=== PATIENT | female | born 1980 | race Caucasian/White ===

== ENCOUNTER 2017-05-10 07:40 | Emergency (ER) | payer OTHER ==
[~2017-05-10] VITALS: Ht 157.5 cm; Wt 74.8 kg
--- NOTE | ~2017-05-10 | EKG ---
[address] [place] [address] ELECTROCARDIOGRAM REPORT Name: AMIE QUEVEDO [id number] Admission: 05/10/17 Attend Phys: Discharge: 05/10/17 Date of : 76 Report #: [id number] THIS REPORT FOR: //name// [facility] ED Test Date: 2017-05-10 Test Time: 07:52:23 Pat Name: AMIE QUEVEDO Department: Room: Gender: F Security Compliance Engineer: ammon : 1980 Requested By: Edgar Obando Order Number: [id number] MD: Rajan Castillo Measurements Intervals [place] Rate: 88 P: 9 NC: 130 QRS: -32 QRSD: 81 T: 45 QT: 390 QTc: 472 Interpretive Statements Sinus rhythm Leftward axis Nonspecific T wave abnormality No previous ECGs available for comparison Electronically Signed On 05-10-2017 17:39:13 CDT by Rajan Castillo [email or web address] <ELECTRONICALLY SIGNED> By: Rajan Castillo MD, [facility] 05/10/17 [id number] [phone] Rajan Castillo MD, FACC /EPI
[~2017-05-10 07:40] MED LIST: CIPROFLOXACIN500 M1 PO; DARVOCET-N 1001 EACH PO; NOHOMEMEDICATIONS; PEPCID40 MG PO; PHENERGAN 25 MG25 M1 PO; STOOL SOFTENER240 MG PO; ZOFRAN ODT4 MG PO
[2017-05-10 08:13] LABS: ABSOLUTE NEUTROPHILS 13.9 thou/uL (1.4-8.2); BASOPHILS 0.2 % (0.0-2.0); EOSINOPHILS 0.2 % (0.0-3.0); HEMATOCRIT 48.2 % (37.0-47.0); HEMOGLOBIN 16.4 gm/dL (12.0-15.0); LYMPHOCYTES 6.5 % (24.0-44.0); MCH 30.5 pg (26.0-34.0); MCV 89.8 fL (80.0-100.0); MONOCYTES 2.4 % (1.0-8.0); PLATELET COUNT 288 thou/uL (150-400); POLYS 90.7 % (36.0-66.0); RBC 5.36 mil/uL (4.20-5.00); RDW 13.8 % (10.5-14.5); WBC 15.3 thou/uL (4.0-11.0)
[2017-05-10 08:18] LABS: CALCIUM 9.1 mg/dL (8.5-10.1); CREATININE 0.7 mg/dL (0.6-1.0); POTASSIUM 3.9 mmol/L (3.5-5.1)
[2017-05-10 08:23] LABS: ALBUMIN 3.7 g/dL (3.4-5.0); TOTAL BILIRUBIN 0.8 mg/dL (<0.1-1.0); TOTAL PROTEIN 7.7 g/dL (6.4-8.2)
[2017-05-10] MEDS ORDERED: ONDANSETRON HCL4 M2 PO (09:37)
[2017-05-10 09:46] VITALS: BP 116/63
== END 2017-05-10 09:47 | disposition home or self-care (01) ==
LOC: ER 07:40
PROVIDERS: Emergency Medicine
DX: R11.2 Nausea with vomiting, unspecified (principal); J45.909 Unspecified asthma, uncomplicated; F17.210 Nicotine dependence, cigarettes, uncomplicated; Z90.49 Acquired absence of other specified parts of digestive tract; Z91.040 Latex allergy status; Z88.1 Allergy status to other antibiotic agents; Z88.5 Allergy status to narcotic agent

== ENCOUNTER 2019-11-18 09:44 | Inpatient (IN) | payer OTHER ==
[~2019-11-18] VITALS: Ht 144.8 cm; Wt 63.5 kg
[~2019-11-18 09:44] MED LIST changes: +ONDANSETRON HCL4 M2 PO
[2019-11-18 09:47] VITALS: BP 154/86
[2019-11-18] MEDS ORDERED: ZOLOFT100 MG PO (09:52)
[2019-11-18] MEDS ORDERED: AMITRIPTYLINE H50 M2 PO (09:52)
[2019-11-18 10:36] LABS: ABSOLUTE NEUTROPHILS 3.4 thou/uL (1.4-8.2); ANION GAP 8 mmol/L (7-16); BASOPHILS 1.2 % (0.0-2.0); BUN 7 mg/dL (7-18); CALCIUM 8.5 mg/dL (8.5-10.1); CHLORIDE 103 mmol/L (98-107); CO2 25 mmol/L (21-32); CREATININE 0.7 mg/dL (0.6-1.0); GLUCOSE 93 mg/dL (74-106); HEMATOCRIT 45.8 % (37.0-47.0); HEMOGLOBIN 15.6 gm/dL (12.0-15.0); LYMPHOCYTES 38.5 % (24.0-44.0); MCH 30.8 pg (26.0-34.0); MCV 90.7 fL (80.0-100.0); MONOCYTES 8.3 % (1.0-8.0); PLATELET COUNT 327 thou/uL (150-400); RBC 5.05 mil/uL (4.20-5.00); RDW 13.6 % (10.5-14.5); SODIUM 136 mmol/L (136-145); WBC 6.8 thou/uL (4.0-11.0)
[2019-11-18 10:42] LABS: APTT 30.5 Seconds (24.5-32.8); PROTIME 10.6 Seconds (9.3-11.4)
[2019-11-18 10:44] LABS: TROPONIN-I <0.06 ng/mL (<0.06)
[2019-11-18 11:22] VITALS: BP 154/86
[2019-11-18 11:54] VITALS: BP 144/78
[2019-11-18 12:13] VITALS: BP 140/83
[2019-11-18 13:06] LABS: ALBUMIN 3.5 g/dL (3.4-5.0); DIRECT BILIRUBIN < 0.1 mg/dL (<0.1-0.2); SGOT 26 U/L (15-37); SGPT 29 U/L (30-65); TOTAL BILIRUBIN 0.4 mg/dL (0.2-1.0); TOTAL PROTEIN 7.3 g/dL (6.4-8.2)
[2019-11-18 15:27] VITALS: BP 146/93
--- NOTE | 2019-11-18 19:32 | NUR ---
ASSUMED CARE OF PT APPROX 1215, PT A&OX4, VSS, DENIES PAIN. IV RIGHT FA INFILTRATED. PATIENT STARTED BOWEL PREP, CONSENT FOR COLONOSCOPY SIGNED. NO SIGNS OF DISTRESS. WILL CONTINUE TO MONITOR.
[2019-11-18 20:01] VITALS: BP 152/94
[2019-11-19 06:28] LABS: HEMATOCRIT 42.8 % (37.0-47.0); HEMOGLOBIN 14.2 gm/dL (12.0-15.0); MCH 30.6 pg (26.0-34.0); MCHC 33.2 g/dL (28.0-37.0); MCV 92.2 fL (80.0-100.0); RBC 4.64 mil/uL (4.20-5.00); RDW 13.5 % (10.5-14.5); WBC 6.9 thou/uL (4.0-11.0)
--- NOTE | 2019-11-19 06:56 | NUR ---
Pt. rested quietly at intervals during the night when checked on during frequent rounds. No noted rectal bleeding. Pt. has been stooling frequently after taking her bowel prep. No c/o pain.
[2019-11-19 07:08] LABS: ALBUMIN 3.1 g/dL (3.4-5.0); CALCIUM 8.1 mg/dL (8.5-10.1); CREATININE 0.6 mg/dL (0.6-1.0); POTASSIUM 3.4 mmol/L (3.5-5.1); TOTAL BILIRUBIN 0.4 mg/dL (0.2-1.0); TOTAL PROTEIN 6.4 g/dL (6.4-8.2)
[2019-11-19 11:11] VITALS: BP 137/82
--- NOTE | 2019-11-19 11:49 | NUR ---
ASSUMED CARE OF PATIENT AT SHIFT CHANGE. ASSESSMENT CHARTED. VSS. PATIENT IS A&OX4 AND PLEASANT. REMIANS NPO FOR COLONOSCOPY TODAY. EDUCATION REINFORCED ABOUT PROCEDURE. PROVIDER AWARE AND INDICATED PATIENT IS CLEARED TO GO HOME AFTER PROCEDURE; WILL CALL FOR AN UPDATE. CONSENT IS SIGNED AND PATIENT IS TO GO DOWN IN WC.
--- NOTE | 2019-11-19 12:41 | NUR ---
PATIENT LEFT UNIT AT 1240 FOR HE SCHEDULED COLONOSCOPY
[2019-11-19 16:27] VITALS: BP 137/82
--- NOTE | 2019-11-19 16:47 | NUR ---
PATIENT LEFT UNIT AT 1645. IV WAS DISCONTINUED. LEFT W SO. VOICED NO COMPLAINTS AT TIME OF DISCHARGE.
--- NOTE | 2019-11-20 12:53 | P ---
[facility] [place] [address] PROCEDURE REPORT Name: AMIE QUEVEDO Room #: 456-P [facility] IN M.R.#: [id number] Admission: 11/18/19 Attend Phys: John Mota MD Discharge: 11/19/19 Date of : 76 Report #: [id number] THIS REPORT FOR: cc: Hardeep Armenta MD, Samuel D. MD McElhinney, Christian C. MD ~ CC: John Armenta DATE OF SERVICE: 11/19/2019 PROCEDURE PERFORMED: Colonoscopy. HISTORY OF PRESENT ILLNESS: The patient is a 39-year-old female with recent bright red blood per rectum. She has a history of complete situs inversus; as a child, underwent reconstructive surgery for fistula and partial colon resection reportedly at that time. The patient has never had a colonoscopy. No immediate family history of colon cancer. CT scan of the abdomen and pelvis yesterday shows situs inversus totalis, no evidence of bowel obstruction, moderate stool in the colon. Distal sigmoid colon and rectum appeared normal. There is some thickening along the left side of the anal canal, which may be postsurgical in nature. DESCRIPTION OF PROCEDURE: The risks and benefits of the procedure were explained to the patient, those risks including but not limited to bleeding, perforation and the risk of sedation. She understood these risks and gave informed consent. Sedation was given using propofol per anesthesia. Next, a digital rectal exam was initially performed, which was abnormal in the sense that there was no anal sphincter. There was just an opening in the skin to the colon mucosa. Next, using a standard Olympus colonoscope, the scope was placed in the patient's anus and advanced under direct vision to the cecum. The overall prep was excellent. The cecum and ileocecal valve were normal. The ascending, transverse, descending, and sigmoid colon were normal. The distal portion either of the rectum or where the surgery was performed in the distal portion of the sigmoid colon, near the anal canal opening was normal. There was no evidence of colitis or blood. Again, the colonic mucosa ended at the opening of the skin. There was no active inflammation or bleeding noted in this area as well. The scope was then withdrawn and the procedure terminated. The patient tolerated the procedure well. IMPRESSION: 1. Surgical changes noted of the anal canal area as described above. 2. Otherwise, normal colonoscopy. [address] [address] PROCEDURE REPORT Name: TIAGOAMIE GLOVER Room #: 456-P [facility] IN M.R.#: [id number] Admission: 11/18/19 Attend Phys: John oMta MD Discharge: 11/19/19 Date of : 76 Report #: [id number] RECOMMENDATIONS: 1. Observe at this time. If signs of bleeding in the future, consider a nuclear medicine bleeding scan. Thank you for allowing me to participate in her care. <ELECTRONICALLY SIGNED> By: Herman Johnson MD 11/20/19 1253 1534 [id number] Herman Johnson MD /nt
== END 2019-11-19 16:45 | disposition home or self-care (01) | DRG 379 ==
LOC: ER 09:44 → EROBS 11:23 → 4W 11:23
PROVIDERS: Emergency Medicine; Nurse Practitioner; ADMIT Hospitalist; ATTEND Hospitalist
PROC: 0DJD8ZZ Inspection of Lower Intestinal Tract, Via Natural or Artificial Opening Endoscopic (ICD-10-PCS; principal; 2019-11-19)
DX: K92.2 Gastrointestinal hemorrhage, unspecified (principal); J45.909 Unspecified asthma, uncomplicated; F12.90 Cannabis use, unspecified, uncomplicated; K21.9 Gastro-esophageal reflux disease without esophagitis; F17.210 Nicotine dependence, cigarettes, uncomplicated; Z20.828 Contact with and (suspected) exposure to other viral communicable diseases; Z90.49 Acquired absence of other specified parts of digestive tract; Z88.8 Allergy status to other drugs, medicaments and biological substances; Z88.6 Allergy status to analgesic agent; Z91.040 Latex allergy status; Z80.1 Family history of malignant neoplasm of trachea, bronchus and lung; Z80.0 Family history of malignant neoplasm of digestive organs; Z79.899 Other long term (current) drug therapy
CPT/HCPCS: 10040; 10045; 62110; 62900; 70005

== ENCOUNTER 2021-03-20 22:19 | Emergency (ER) | payer OTHER ==
[~2021-03-20] VITALS: Ht 144.8 cm; Wt 54.4 kg
[~2021-03-20 22:19] MED LIST changes: +AMITRIPTYLINE H50 M2 PO; +ZOLOFT100 MG PO
[2021-03-20 22:59] LABS: URINE BILIRUBIN NEGATIVE (Negative); URINE BLOOD TRACE (Negative); URINE CLARITY CLOUDY; URINE COLOR YELLOW; URINE GLUCOSE-RANDOM* NEGATIVE (Negative); URINE KETONES NEGATIVE (Negative); URINE LEUKOCYTES-REFLEX TRACE (Negative); URINE PROTEIN (DIPSTICK) NEGATIVE (Negative); URINE SPECIFIC GRAVITY 1.015 (1.005-1.035); URINE UROBILINOGEN 0.2 E.U./dl (0.2-1.0)
[2021-03-20 23:01] LABS: URINE NITRITE-REFLEX POSITIVE (Negative)
[2021-03-20 23:21] LABS: ABSOLUTE NEUTROPHILS 9.8 thou/uL (1.4-8.2); EOSINOPHILS 0.4 % (0.0-3.0); HEMATOCRIT 43.1 % (37.0-47.0); HEMOGLOBIN 14.8 gm/dL (12.0-15.0); LYMPHOCYTES 15.6 % (24.0-44.0); MCH 29.9 pg (26.0-34.0); MCHC 34.4 g/dL (28.0-37.0); MCV 87.1 fL (80.0-100.0); MONOCYTES 4.1 % (1.0-8.0); PLATELET COUNT 370 thou/uL (150-400); POLYS 78.9 % (36.0-66.0); RBC 4.95 mil/uL (4.20-5.00); RDW 13.6 % (10.5-14.5); WBC 12.4 thou/uL (4.0-11.0)
[2021-03-20 23:42] LABS: CALCIUM 8.7 mg/dL (8.5-10.1); CREATININE 0.6 mg/dL (0.6-1.0); POTASSIUM 3.9 mmol/L (3.5-5.1)
[2021-03-20 23:58] LABS: AMORPHOUS PHOSPHATES Many /LPF (None Seen); BACTERIA-REFLEX >30 Many /HPF (None Seen); CASTS None Seen /LPF (None Seen); MUCUS 4-6 Moderate strn/LPF (None Seen); SQUAMOUS 4-10 Moderate /LPF (0-3); URINE RBC 3-10 Few /HPF (NONE SEEN); URINE WBC-REFLEX 6-15 Few /HPF (0-5)
[2021-03-20 23:59] LABS: CRYSTALS None Seen /LPF (None Seen)
[2021-03-21] MEDS ORDERED: MACROBID 100 M100 M1 PO (01:12)
[2021-03-21 01:29] VITALS: BP 134/81
--- NOTE | 2021-03-21 07:34 | EKG ---
[place] [address] [facility] [place] [address] ELECTROCARDIOGRAM REPORT Name: AMIE QUEVEDO Room #: DEP [facility]#: [id number] Admission: 03/20/21 Attend Phys: Discharge: 03/21/21 Date of : 76 Report #: [id number] [facility] ED Test Date: 2021-03-20 Test Time: 22:33:55 Pat Name: AMIE QUEVEDO Department: Room: Gender: F Nascar Racer: GABE : 1980 Requested By: David Elizalde Order Number: [id number] MD: Jose Roldan Measurements Intervals [place] Rate: 66 P: 203 SD: 142 QRS: 205 QRSD: 93 T: 67 QT: 435 QTc: 456 Interpretive Statements Ectopic atrial rhythm Baseline wander in lead(s) V4 Compared to ECG 05/10/2017 07:52:23 Ectopic atrial rhythm now present Sinus rhythm no longer present Left-axis deviation no longer present T-wave abnormality no longer present Electronically Signed On 03-21-2021 7:34:27 ANIMAL RESEARCHER by Jose Roldna [email or web address] <ELECTRONICALLY SIGNED> By: Jose Roldan MD, [facility] 03/21/21 0734 32 32 Jose Roldan MD, [facility] /EPI
== END 2021-03-21 01:30 | disposition home or self-care (01) ==
LOC: ER 22:19
PROVIDERS: Student in an Organized Health Care Education/Training Program
DX: N39.0 Urinary tract infection, site not specified (principal); R10.13 Epigastric pain; F17.210 Nicotine dependence, cigarettes, uncomplicated; J45.909 Unspecified asthma, uncomplicated; Z79.899 Other long term (current) drug therapy; Z90.49 Acquired absence of other specified parts of digestive tract; Z91.040 Latex allergy status; Z88.1 Allergy status to other antibiotic agents; Z88.5 Allergy status to narcotic agent